=== PATIENT | male | born 1950 | race Caucasian/White ===

== ENCOUNTER → 2016-07-09 | Outpatient (CLI) | payer MEDICARE, MEDICAID ==
[~2016-07-09] MED LIST: 8 HOUR650 MG PO; AGGRENOX 25 MG-1 CER PO; AGGRENOX 25/2001 EA PO; AMARYL1 M1 PO; AMOX-CLAV PO; ARANESP0.1 MG/0.5 SC; ARANESP100 MCG/1 IV; ASPIRIN81 M1 PO; ATORVASTATIN CA20 M1 PO; BACTRIM DS 8001 TA1 PO; CALCIUM ACETAT667 M2 PO; CYCLOPHOSPHAMID50 M1 PO; CYTOXAN PO; DELTASONE20 M1 PO; DEXTROSE IV; DIALYVITE 800 W1 TA2 PO; DILTIAZEM 24HR360 MG PO; DILTIAZEM360 MG PO; DIOVAN160 MG PO; DOXAZOSIN MESYLA2 MG PO; ESIDREX,ORETIC,25 MG PO; FLEET GLYCERIN1 SU1 R; GLUCAGON HCL1 MG IJ; GLYCERIN1 EACH RC; HEPARIN SO5000 UNIT/ IV; IMODIUM A-D2 M2 PO; KLOR-CON 1010 ME1 PO; KLOR-CON M2020 ME1 PO; LASIX20 MG PO; LIPITOR20 MG PO; LISINOPRIL2.5 MG PO; LOPERAMIDE HCL2 MG PO; MAGNESIUM OXID400 MG PO; MANNITOL IV; MIDODRINE HCL5 M1 PO; MINIPRESS2 M1 PO; MISOPROSTOL100 MCG PO; MULTAQ400 MG PO; NEPHRO-VITE RX1 TAB PO; NITROSTAT0.3 M1 SL; NITROSTAT0.4 MG SL; NORCO 10-325 T1 EACH PO; NOVOLOG FLEX100 U/ML SC; NOVOLOG10 ML IV; Nicotrol 10MG I1 BOX INH; OXY IR PO; PERCOCET 325 MG1 TA2 PO; PRAZOSIN HCL2 MG PO; PREDNISONE10 M1 PO; PREDNISONE10 MG PO; PREDNISONE20 M1 PO; PRILOSEC20 M1 PO; PROAMATINE PO; PROTONIX40 MG PO; PULMICORT RESP0.5 M1 INH; QUESTRAN LIGHT4 GM PO; SMZ TMP DS PO; TOPROL XL50 M1 PO; TRIAMCINOLONE AC0.1% T; TRIAMTERENE & H1 CAP PO; VALSARTAN160 MG PO; VITAMIN D50000 UNIT PO; ZOFRAN4 MG PO; Zofran4 MG PO
[2016-07-09 10:20] LABS: HEMOGLOBIN 10.8 g/dl (14.0-18.0); MEAN CELL VOLUME 116.2 fl (80.0-94.0); MEAN CORPUSCULAR HGB CONC 32.7 g/dl (33.0-37.0); MEAN PLATELET VOLUME 11.1 fl (9.6-12.3); PLATELET COUNT AUTOMATED 197 10*3/uL (130-400); RED BLOOD COUNT 2.84 10*6/uL (4.50-5.90); RED CELL DISTRI WIDTH 15.1 % (0-14.5); WHITE BLOOD COUNT 16.7 10*3/uL (4.8-10.8)
[2016-07-09 10:46] LABS: ALBUMIN 2.9 gm/dl (3.1-4.5); BILIRUBIN, DIRECT 0.2 mg/dL (0.0-0.2); BILIRUBIN, TOTAL 0.4 mg/dl (0.2-1.0); POTASSIUM 4.8 mmol/L (3.5-5.1)
[2016-07-09 10:48] LABS: BILIRUBIN NEGATIVE (NEGATIVE); BLOOD 2+ (NEGATIVE); CLARITY CLOUDY (CLEAR); COLOR YELLOW (YELLOW); GLUCOSE NEGATIVE (NEGATIVE); KETONE NEGATIVE (NEGATIVE); LEUKO ESTERASE 3+ (NEGATIVE); NITRITE NEGATIVE (NEGATIVE); PH 7.5 (5.0-9.0); PROTEIN 2+ (NEGATIVE); SPECIFIC GRAVITY 1.015 (1.005-1.030); UROBILINOGEN 0.2 E.U./dl (0.2-1.0)
[2016-07-09 11:01] LABS: BACTERIA 1+; WBC TNTC wbc/hpf (0-5)
[2016-07-09 11:01] LABS: EOSINOPHIL # 0.3 10*3/uL (0-0.4); EOSINOPHILS 2 % (1-4); LYMPHOCYTE # 1.5 10*3/uL (1.3-4.4); MONOCYTE # 0.3 10*3/uL (0.1-1.0); NEUTROPHIL # 14.5 10*3/uL (2.3-7.9); NEUTROPHILS 87 % (47-73); PLATELET SUFFICIENCY NORMAL (NORMAL); TOTAL CELLS COUNTED 100 #CELLS
== END | disposition home or self-care (01) ==
LOC: CANPRESDC → SDC 08:45 → RAD 12:00 → LAB 12:00 → SDC 07-11 08:45 → EDSTATUS 07-11 08:45 → SDC 07-11 10:45
PROVIDERS: Surgery
DX: Z01.818 Encounter for other preprocedural examination (principal); Z93.2 Ileostomy status; N18.6 End stage renal disease

== ENCOUNTER → 2016-07-18 | Outpatient (CLI) | payer MEDICARE, MEDICAID ==
--- NOTE | ~2016-07-18 | PR ---
[place], [place] PROGRESS NOTE NAME: JACQUELINE GIFFORD [facility] #: [id number] UNIT #: [id number] ROOM: DOCTOR: CHUCKY GriffithJOSEMANUEL BIRTHDATE: [birth year] DOS: 07/18/2016 CHIEF COMPLAINT: Followup of pressure ulcer of the left elbow. HISTORY OF PRESENT ILLNESS: A 65-year-old male with multiple medical problems with the pressure ulcer of the left elbow, which is a full thickness stage 3. 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 He had been on a trial for a wound VAC which he has had for approximately 3 weeks now without any significant problems. He has no pain, no fevers, no chills, no change in drainage. There is no odor coming from the wound. He had a callus present on the right lateral foot, which is not causing him any pain at this time, and no specific complaints regarding that. He does have an area he was concerned of his fourth toe on the right foot, which was somewhat uncomfortable and had a dark discoloration to it. He has been using some sort of cream from his primary care physician, he is not sure what it is, but it seems to have been helping and has been improving the redness on that toe. Other than that, he has no specific complaints. His surgery for reversal of colostomy is on hold as he has been diagnosed with UTI. PHYSICAL EXAMINATION: VITAL SIGNS: He is afebrile, pulse is 64, respirations 18, blood pressure is 100/60. SKIN: The wound on the left elbow is really unchanged. The opening is 0.5 x 0.5 x 0.3 in depth, and there is still some undermining noted. Does not seem to be as deep all the way around as it had been, but it is still a maximum depth of 1.5, probably in the lower half of the wound, so the wound VAC does not seem to have really helped. There is no necrotic tissue, no purulence or cellulitis. The MRI was done of the elbow, which was negative. Debridement was not done today. ASSESSMENT AND PLAN: Pressure ulcer of the left elbow stage 3 that really seems to be stagnant at this point. The wound looks clean at this time. It does not appear infected. There is no visible necrotic tissue. I would just try to see if it will heal with collagen once again. I do think that the movement of flexing and extending his elbow is making it a little bit more difficult to heal this area as it is an area where the joint is. I did suggest a sling to see if we can help immobilize this, but then they are concerned that he would not be able to use his walker and walk around, so this is a difficult issue for him. I do think that if we will use a collagen dressing for now and pad it up with a lot of padding on it to protect the area, I would just loosely pack the wound and have him follow up in one week. [place], [place] PROGRESS NOTE [facility]: [facility] [id number] UNIT #: [id number] ROOM: DOCTOR: JOSEMANUEL LOCKE M.D. BIRTHDATE: [birth year] JOSEMANUEL LOCKE MD CM:PNTRANS [id number] JOSEMANUEL LOCKE M.D. 07/19/16 0048 interface
== END ==
LOC: WOUNDCARE 01:31
DX: E11.622 Type 2 diabetes mellitus with other skin ulcer (principal); L89.023 Pressure ulcer of left elbow, stage 3; M31.31 Wegener's granulomatosis with renal involvement; L84 Corns and callosities; E11.22 Type 2 diabetes mellitus with diabetic chronic kidney disease; N18.6 End stage renal disease; Z99.2 Dependence on renal dialysis

== ENCOUNTER 2016-07-23 09:30 | Inpatient (IN) | payer MEDICARE, MEDICAID ==
[~2016-07-23] VITALS: Ht 175.2 cm; Wt 80.5 kg
--- NOTE | ~2016-07-23 | O ---
[place], [place] OPERATIVE NOTE NAME: [facility]FFORD [facility] [id number] UNIT #: [id number] ROOM: [facility] DOCTOR: THONG WILLOUGHBY MD BIRTHDATE: [birth year] DOS: 07/31/2016 PREOPERATIVE DIAGNOSIS: Abdominal fascial dehiscence. POSTOPERATIVE DIAGNOSIS: Abdominal fascial dehiscence. PROCEDURE: Repair of abdominal fascial dehiscence. SURGEON: Thong Willoughby MD WELLNESS SPA MANAGER: MS3. ANESTHESIA: General with endotracheal intubation. INDICATIONS: This is a 66-year-old gentleman who recently underwent an exploratory laparotomy with takedown of ileostomies and partial small bowel resection, was found to have an abdominal fascial dehiscence upon rounds this morning. It was decided to take the patient to the OR for abdominal fascial dehiscence. The procedure and its complications were explained to the patient and his family in detail preoperatively. Complications that were discussed included, but were not limited to bleeding, hernia formation, infection and prolonged postoperative pain as well as recurrence. He agreed to proceed. DESCRIPTION OF PROCEDURE: After identifying the patient, the patient was brought to the operating suite and laid in the supine position. After induction of general anesthesia, the parts were painted and draped in the usual sterile fashion and a timeout procedure was called. The midline incision where the dehiscence was had some robert, which were removed and the skin edges were from each other. There was found to be a limited amount of fascial dehiscence in the inferior part of the incision where the stitch seemed to have broken through after the patient's coughing bout yesterday. This suture was completely removed and the fascial edges were inspected. They were freshened and saline was used for irrigation to clean the fascial edges out. Thereafter, 4 retention sutures were placed (#2 Ethilon) between the top and the body of the incision. Thereafter, the fascial defect itself was approximated with the help of #1 Prolene in a jygych-vw-foega interrupted fashion. Thereafter, the skin edges were approximated with the help of robert and the retention sutures were tied together over rubber bridge. A dressing was given. The patient was taken to the recovery room after uneventfully extubation. He tolerated the procedure well. There were no complications. Dr. Thong Willoughby, the attending surgeon, was present throughout the operating case. [place], [place] OPERATIVE NOTE NAME: JACQUELINE GIFFORD UNIT #: [id number] ROOM: [facility] DOCTOR: THONG WILLOUGHBY MD BIRTHDATE: [birth year] Thong Willoughby MD CM:OPRECORD:OPERATIVE NOTE [id number] THONG WILLOUGHBY MD 07/31/16 1220 interface
--- NOTE | ~2016-07-23 | O ---
[place], [place] OPERATIVE NOTE NAME: JACQUELINE GIFFORD [facility] #: [id number] UNIT #: [id number] ROOM: [facility] DOCTOR: THONG WILLOUGHBY MD BIRTHDATE: [birth year] DOS: 07/25/2016 PREOPERATIVE DIAGNOSIS: Ileostomies x2, status post exploratory laparotomy for ischemic bowel. POSTOPERATIVE DIAGNOSIS: Ileostomies x2, status post exploratory laparotomy for ischemic bowel. PROCEDURE: Exploratory laparotomy, lysis of adhesions, takedown of ileostomies x2, partial small bowel resection, repair of parastomal hernias x2, ileocolic anastomosis. SURGEON: Thong Willoughby MD CATTLE ALLEY WORKER: MS3. ANESTHESIA: General with endotracheal intubation. INDICATIONS: This is a 65-year-old gentleman who a few months ago underwent multiple exploratory laparotomies for ischemic bowel at an outside institution. The patient had a left lower quadrant ileostomy and a right lower quadrant mucous fistula which the patient wants reversed. The procedure and its complications explained to the patient in detail preoperatively. Complications that were discussed included but were not limited to bleeding, infection, hematoma/seroma/abscess formation, prolonged postoperative pain, damage to underlying vital structures, anastomotic leak, enterocutaneous fistula and prolonged postoperative pain. He agreed to proceed. DESCRIPTION OF PROCEDURE: After identifying the patient, the patient was brought to the operating suite and laid in the supine position. After induction of general anesthesia, the abdomen was prepped by removing the ileostomy bag and cleaning the area of the ileostomy. The abdomen was then shaved and prepped in the usual sterile fashion. Timeout procedure was called in the usual fashion as well. After the parts were painted and draped, the two ileostomies were closed with the help of 2-0 silk in a running fashion. The previously made midline incision scar was used to enter the abdomen again. The skin and the subcutaneous tissue were incised. The fascia was incised and the previous sutures from his abdominal laparotomy were removed. Careful entry to the abdomen was performed and multiple adhesions between the loops of the intestine and the anterior abdominal wall were taken down with the help of electrocautery and scissors. At this point, the left lower quadrant ileostomy was taken down by dissecting away from the bowel and the fascial defect, similar freeing of the mucus fistula on the right lower quadrant was performed. Thereafter, careful lysis of adhesions were performed in the right lower quadrant in order to separate the mucous fistula and to delineate the anatomy. There was approximately 40 cm of bowel, which was a blind loop, which was identified. It was decided to go ahead and resect this part of the intestine, and this was achieved with the help of the LigaSure device by ligating the mesentery involving the mucous fistula. This segment of the small intestine was sent for histopathological diagnosis. Thereafter, lysis of adhesions was done in the [place], [place] OPERATIVE NOTE NAME: JACQUELINE GIFFORD UNIT #: [id number] ROOM: [facility] DOCTOR: DALILA TREVIZO,THONG BIRTHDATE: [birth year] region of the ileostomy, so that adequate mobilization of the small intestine could be obtained. After adequate mobilization was completed, attention was turned towards the mid transverse colon, and this was identified by palpation of the colon as well as the staple line. This part of the colon was from the surrounding structures by lysing the adhesions in a blunt and sharp manner so that an adequate segment of the transverse colon could be used for the anastomosis. After that was performed, a stapled anastomosis (eodf-im-xlia, functional end-to-end) was performed with the help of a OWEN stapler. Thereafter, the opening was then closed with the help of a TIA stapler and the staple line was then reinforced with the help of 3-0 silk in an interrupted fashion. The mesenteric defect was then approximated with the help of a running 3-0 Vicryl suture. Thereafter, saline was used for irrigation and after that was performed, the two openings of the ileostomy on both lower quadrants were approximated with the help of continuous 0 PDS suture. Thereafter, the fascial defect in the midline was also approximated with the help of looped PDS in a running fashion. Saline was used for irrigation for all the 3 incisions, and they were then approximated with the help of robert. Dressing was given. The patient tolerated the procedure well and was taken to the recovery room in a stable fashion after uneventful extubation. Dr. Thong Willoughby, the attending surgeon, was present throughout the operating case. Blood loss was minimal. Thong Willoughby MD CM:OPRECORD:OPERATIVE NOTE [id number] THONG WILLOUGHBY MD 07/25/16 1132 interface
--- NOTE | ~2016-07-23 | PROC NOTE ---
[place], [place] PROCEDURE NOTE NAME[id number] UNIT #: [id number] ROOM: [facility] DOCTOR: QUITA BRISENO BIRTHDATE: [birth year] DOS: 07/29/2016 PROCEDURE: Modified barium swallow. BACKGROUND HISTORY AND MEDICAL HISTORY: The patient is a pleasant 66-year-old female with normal expressive receptive language. He was oriented to time and place, was able to follow commands, and he was a good historian for his recent medical history. He has a diagnosis of malnutrition, status post partial small bowel resection and he also is end-stage renal failure and reports he is on dialysis. The patient is currently on a clear liquid diet, and this was suspected due to recent bowel resection surgery. The patient denies any difficulty swallowing reported. He had a CVA 15 years ago, but denies any other neurological diagnosis at this time. The patient had a recent chest x-ray done on 07/27/2016, which showed small area in the right base, which is a change since last exam 07/19/2016. METHODS AND PROCEDURE: This study was done in conjunction with radiologist, Dr. Singh. The patient was in a wheelchair and viewed in the lateral plane. The patient was able to independently give himself the barium, and he was only given thin liquid barium and nectar thick liquid barium due to the fact of his recent surgery and that he is still on a clear liquid diet for suspected GI reasons. The patient took the barium via cup and he took a single sip of thin liquid and then sequential few sips and then a single sip of nectar liquid. ORAL PHASE: The patient demonstrated mild reduced ability to form a cohesive bolus and transfer it to the pharyngeal phase. It was mildly slow and this was suspected due to weakness of the tongue and punching action of the tongue to push the bolus into the pharynx. The patient demonstrated nofp-iv-qiprtxyt tongue base residue in which he produced sequential swallows and did clear. PHARYNGEAL PHASE: The radiologist reported quick transient penetration and bgdae-ye-rzvw amount on the thin and nectar; however, it was cleared and no aspiration was ever noted. RECOMMENDATIONS AND IMPRESSION: The patient demonstrates some weakness. He reports overall weakness since his surgery with some mildly reduced bolus formation and the transfer was slightly slow leaving some tongue-based residue, mild to moderate; however, the patient independently cleared that tongue base residue with to no residue. He eventually had no residue in the pharynx. Radiologist reported quick transient penetration on nectar and thin; however, it cleared and patient never demonstrated any signs and symptoms of aspiration. No diet recommendations are recommended at this time. The patient has a functional oral and pharyngeal phase and diet is to be recommended per physician based on recent GI issues and small bowel resection. Thank you for this referral. [place], [place] PROCEDURE NOTE NAME: JACQUELINE GIFFORD UNIT #: [id number] ROOM: [facility] DOCTOR: QUITA BRISENO BIRTHDATE: [birth year] QUITA BRISENO CM:PROCNOTE:PROCEDURE NOTE [id number] QUITA BRISENO
--- NOTE | ~2016-07-23 | PR ---
[place], [place] PROGRESS NOTE NAME: JACQUELINE GIFFORD [facility] #: [id number] UNIT #: [id number] ROOM: 501 DOCTOR: CHUCKY GriffithJOSEMANUEL BIRTHDATE: [birth year] DOS: 08/01/2016 WOUND CARE FOLLOWUP NOTE SUBJECTIVE: The patient is going to be discharged to intermediate today. I did come up to see him for a followup regarding his pressure ulcer of his left elbow. He is not complaining of any discomfort. There is minimal drainage and he has no other specific complaints regarding the wound. We had changed him to TheraHoney and foam to see if this would help in wound healing. OBJECTIVE: VITAL SIGNS: Stable. Temp is 98.1, pulse is 103, respirations 20, blood pressure is 151/93. WOUND EXAMINATION: The wound dressing was removed carefully. He did have elbow protector on top of the foam which was I thought a nice addition for pressure relief and the wound margins are essentially the same. The wound appears stable. There is no active cellulitis, purulence or tenderness. The wound margins are about the same at 0.5 x 0.5 x 0.3. The base of the wound looks clean. The undermining is still present, but I am only able to get the Q-tip down to approximately 1-1.2 cm were before it was quite a bit more of undermining at 1.5 cm, so it does seem like there is slightly less undermining than before. The undermining; however, is present all the way around as well. ASSESSMENT AND PLAN: Pressure ulcer, stage3, chronic, nonhealing. There are no signs of active infection. The wound healing has been quite slow. I would continue to use TheraHoney for now. It does seem to be perhaps helping a little bit with the undermining and I would like to have this be used for a little longer to see if how much further we progressed with wound healing. He has multiple factors that are contributing to poor wound healing including autoimmune disease, chronic renal failure on hemodialysis, diabetes, immunosuppressive agents and hypoalbuminemia. So, we will continue the Honey and foam and elbow protectors. The patient is going to be going to [facility]. Discharge orders for wound care have been written and I would like to see the patient in followup in the Wound Clinic if possible within a week that depends on transportation issues. [place], [place] PROGRESS NOTE NAME: JACQUELINE GIFFORD UNIT #: [id number] ROOM: [facility] DOCTOR: JOSEMANUEL LOCKE M.D. BIRTHDATE: [birth year] JOSEMANUEL LOCKE MD CM:JANI [id number] JOSEMANUEL LOCKE M.D. 08/01/16 2357 interface
--- NOTE | ~2016-07-23 | CON ---
[place], [place] REPORT OF CONSULTATION NAME: JACQUELINE GIFFORD [facility] #: [id number] UNIT #: [id number] ROOM: [facility] DOCTOR: CHUCKY GriffithJOSEMANUEL BIRTHDATE: [birth year] DOS: 07/25/2016 WOUND CARE CONSULTATION. HISTORY OF PRESENT ILLNESS: This is a 65-year-old male with a history of Jose's granulomatosis, chronic renal failure on hemodialysis, who underwent an elective colostomy reversal today. He just returned back to his room approximately an hour ago. Wound Care has been consulted does have been following him for a chronic wound of his left elbow. He has had this wound for many months now. He had come to see us in the wound clinic in April with the pressure ulcer of his left elbow that has not healed since we have been following him. We have tried several different dressings including silver dressings, collagen dressings Hydrofera Blue dressing, wound VAC without any significant change in measurements. He does have a fair amount of undermining and this has not really budged. He has had repeated episodes of purulence coming from the wound at times, but x-rays have been negative as well as MRI. It does not cause him any pain or discomfort. PAST MEDICAL HISTORY: Complicated by Mandie's granulomatosis, chronic renal failure, diabetes, CVA, hyperlipidemia, hypertension, normocytic anemia, polymyalgia rheumatica, history of resection of the small bowel secondary to GI bleed, ERCP, history of exploratory laparotomy, history of cholecystectomy. ALLERGIES: No known drug allergies. SOCIAL HISTORY: He lives with his . He goes to hemodialysis. He denies alcohol or drug abuse, does smoke 1 pack per day for 50 years. FAMILY HISTORY: Significant for cancer in his father, cardiac disease in his mother, 2 brothers with a history of cancer. CURRENT MEDICATIONS: The current medications that have been ordered and are as follows: Heparin subQ 5000 units, Zofran 4 mg p.r.n., morphine 2 mg q.4 hours p.r.n., Dilaudid 1 mg q.3 hours p.r.n., Dulcolax daily, Tylenol p.r.n. He is on several different other oral medications that are currently on hold and they include prednisone, Septra, Amaryl, Protonix, midodrine, Imodium, Lipitor, cholestyramine. Those are all seems to be on hold . REVIEW OF SYSTEMS: He really offers no specific complaints. He just got out of surgery. He does complain of some abdominal discomfort, but otherwise offers me no specific complaints at this time. PHYSICAL EXAMINATION: VITAL SIGNS: His temp is 97.4, pulse is 86, respirations 18, blood pressure is 125/72. GENERAL: The patient is somewhat drowsy at this time, but awakens easily. WOUND EXAMINATION: His wound was examined. It is a stage 3 pressure ulcer of the left elbow that has full thickness. There is no surrounding purulence or tenderness or active cellulitis. There is some drainage noted on the dressing today. The wound measurements are approximately 0.5 x 0.5 x 0.3 in depth and [place], [place] REPORT OF CONSULTATION NAME: JACQULEINE GIFFORD UNIT #: [id number] ROOM: [facility] DOCTOR: JOSEMANUEL LOCKE M.D. BIRTHDATE: [birth year] there is a fairly large amount of undermining pretty much throughout the entire area of approximately 1.5 cm. The rest of his exam, he is in no acute distress. LUNGS: Clear to auscultation anteriorly. CARDIOVASCULAR: S1, S2 regular rate and rhythm. ABDOMEN: Deferred. EXTREMITIES: There is no edema and no calf tenderness. LABORATORY DATA: His labs show white count of 15, hemoglobin of 11 and platelets of 242. BUN is 33, creatinine is 5.38, potassium is 5. Glucose was 53 this morning. Hemoglobin A1c is 7.4. Magnesium was low at 1.4. LFTs show an alkaline phosphatase of 123, ALT of 87, total protein is 6.1, albumin is 2.8. Triglycerides are elevated at 265. ASSESSMENT AND PLAN: Chronic pressure ulcer of the left elbow that has been very difficult to heal. We have tried many different dressings including collagen antimicrobials, wound VACs as well as debridements without any significant change in measurements. One of the dressings that we have not used is TheraHoney, so since he is here, I would like to try this and I would continue to pad and protect it with a foam dressing, elbow protectors have been ordered. Once the patient is medically stable from a surgical standpoint, I would like to consider an Ortho consult to see if they have any suggestions on further management of trying to close this wound. Orders have been written. The patient will be followed in the Wound Clinic upon discharge when medically stable. JOSEMANUEL LOCKE MD CM:CONSTR:REPORT OF CONSULTATION 1553 07/26/16 0523 interface
--- NOTE | ~2016-07-23 | CON ---
[place], [place] REPORT OF CONSULTATION NAME: JACQUELINE GIFFORD UNIT #: [id number] ROOM: [facility] DOCTOR: JOSEMANUEL LOCKE M.D. BIRTHDATE: [birth year] DOS: WOUND CARE CONSULTATION HISTORY OF PRESENT ILLNESS: This is a 65-year-old male with a history of Mandie's granulomatosis, chronic kidney disease who underwent an elective colostomy reversal today. Wound care has been consulted for a chronic wound of his left elbow. JOSEMANUEL LOCKE MD CM:CONSTR:REPORT OF CONSULTATION 1538 08/15/16 0637 RUTHIE SAENZ.R
[~2016-07-23 09:30] MED LIST changes: -8 HOUR650 MG PO; -DELTASONE20 M1 PO; -DEXTROSE IV; -DIALYVITE 800 W1 TA2 PO; -HEPARIN SO5000 UNIT/ IV; -IMODIUM A-D2 M2 PO; -LISINOPRIL2.5 MG PO; -MANNITOL IV; -MULTAQ400 MG PO; -NORCO 10-325 T1 EACH PO; -PRILOSEC20 M1 PO; -TOPROL XL50 M1 PO
[2016-07-24 13:15] VITALS: BP 104/65
[2016-07-24 13:42] VITALS: BP 104/65
[2016-07-24] MEDS ORDERED: DIALYVITE 800 W1 TA2 PO (14:10)
[2016-07-24] MEDS ORDERED: IMODIUM A-D2 M2 PO (14:10)
[2016-07-24 16:00] VITALS: BP 127/83
[2016-07-24 20:00] VITALS: BP 122/75
[2016-07-24 20:36] LABS: HEMATOCRIT 32.2 % (42.0-52.0); HEMOGLOBIN 10.5 g/dl (14.0-18.0); MEAN CELL VOLUME 112.6 fl (80.0-94.0); MEAN CORPUSCULAR HGB 36.7 pg (27.0-31.0); MEAN CORPUSCULAR HGB CONC 32.6 g/dl (33.0-37.0); MEAN PLATELET VOLUME 11.4 fl (9.6-12.3); NUCLEATED RED BLOOD CELL 0.3 % (0.0-0.0); PLATELET COUNT AUTOMATED 227 10*3/uL (130-400); RED BLOOD COUNT 2.86 10*6/uL (4.50-5.90); RED CELL DISTRI WIDTH 14.6 % (0-14.5); WHITE BLOOD COUNT 13.9 10*3/uL (4.8-10.8)
[2016-07-24 20:52] LABS: ALBUMIN 2.6 gm/dl (3.1-4.5); BILIRUBIN, TOTAL 0.3 mg/dl (0.2-1.0); POTASSIUM 5.3 mmol/L (3.5-5.1); TOTAL PROTEIN 5.5 gm/dL (6.4-8.2)
[2016-07-24 20:55] LABS: LYMPHOCYTE # 0.1 10*3/uL (1.3-4.4); METAMYELOCYTES 3 % (0-0); MONOCYTE # 0.4 10*3/uL (0.1-1.0); NEUTROPHIL # 12.9 10*3/uL (2.3-7.9); NEUTROPHILS 93 % (47-73); STOMATOCYTE FEW; TOTAL CELLS COUNTED 100 #CELLS
[2016-07-24 20:56] LABS: BURR CELLS FEW; PLATELET SUFFICIENCY NORMAL (NORMAL)
[2016-07-25] VITALS (12 sets, daily range): BP systolic 109–156; BP diastolic 67–94
[2016-07-25 07:10] LABS: MEAN CELL VOLUME 114.1 fl (80.0-94.0); MEAN CORPUSCULAR HGB 36.9 pg (27.0-31.0); MEAN CORPUSCULAR HGB CONC 32.4 g/dl (33.0-37.0); MEAN PLATELET VOLUME 11.2 fl (9.6-12.3); NUCLEATED RED BLOOD CELL 0.2 % (0.0-0.0); PLATELET COUNT AUTOMATED 242 10*3/uL (130-400); RED BLOOD COUNT 2.98 10*6/uL (4.50-5.90); RED CELL DISTRI WIDTH 14.6 % (0-14.5)
[2016-07-25 07:29] LABS: PROTHROMBIN TIME 10.9 SECONDS (9.0-12.4)
[2016-07-25 07:32] LABS: ALBUMIN 2.8 gm/dl (3.1-4.5); BILIRUBIN, TOTAL 0.3 mg/dl (0.2-1.0); FREE T4 1.2 ng/dl (0.76-1.46); MAGNESIUM 1.4 mg/dL (1.5-2.1); PHOSPHOROUS 4.9 mg/dL (2.5-4.9); THYROID STIM HORMONE (HS) 1.22 uIU/ml (0.358-4.75); TOTAL PROTEIN 6.1 gm/dL (6.4-8.2)
[2016-07-25 07:48] LABS: ATYPICAL LYMPHS 2 % (0-0); LYMPHOCYTE # 1.1 10*3/uL (1.3-4.4); METAMYELOCYTES 2 % (0-0); MONOCYTE # 0.9 10*3/uL (0.1-1.0); NEUTROPHIL # 12.8 10*3/uL (2.3-7.9); NEUTROPHILS 85 % (47-73); TOTAL CELLS COUNTED 100 #CELLS
[2016-07-25 07:49] LABS: FOLIC ACID > 24.00 ng/mL (>5.38); PLATELET SUFFICIENCY NORMAL (NORMAL); POLYCHROMASIA SLIGHT
[2016-07-25 07:54] LABS: HEMOGLOBIN A1c 7.4 % (4.8-5.6)
[2016-07-26] VITALS: BP 118/54
[2016-07-26 08:00] VITALS: BP 118/74
[2016-07-26 08:16] LABS: HEMATOCRIT 33.1 % (42.0-52.0); HEMOGLOBIN 10.7 g/dl (14.0-18.0); MEAN CELL VOLUME 113.4 fl (80.0-94.0); MEAN CORPUSCULAR HGB 36.6 pg (27.0-31.0); MEAN CORPUSCULAR HGB CONC 32.3 g/dl (33.0-37.0); MEAN PLATELET VOLUME 11.7 fl (9.6-12.3); NUCLEATED RED BLOOD CELL 0.2 % (0.0-0.0); PLATELET COUNT AUTOMATED 229 10*3/uL (130-400); RED BLOOD COUNT 2.92 10*6/uL (4.50-5.90); RED CELL DISTRI WIDTH 14.6 % (0-14.5); WHITE BLOOD COUNT 16.1 10*3/uL (4.8-10.8)
[2016-07-26 08:25] LABS: ALBUMIN 2.5 gm/dl (3.1-4.5); BILIRUBIN, TOTAL 0.4 mg/dl (0.2-1.0); POTASSIUM 5.6 mmol/L (3.5-5.1); TOTAL PROTEIN 5.8 gm/dL (6.4-8.2)
[2016-07-26 09:08] LABS: MONOCYTE # 0.2 10*3/uL (0.1-1.0); NEUTROPHILS 93 % (47-73); OVALOCYTES FEW; PLATELET SUFFICIENCY NORMAL (NORMAL); TOTAL CELLS COUNTED 100 #CELLS
[2016-07-26 16:00] VITALS: BP 120/84
[2016-07-26 20:00] VITALS: BP 126/73
[2016-07-27] VITALS: BP 118/70
[2016-07-27 06:05] LABS: HEMATOCRIT 29.3 % (42.0-52.0); HEMOGLOBIN 9.4 g/dl (14.0-18.0); MEAN CELL VOLUME 113.1 fl (80.0-94.0); MEAN CORPUSCULAR HGB 36.3 pg (27.0-31.0); MEAN CORPUSCULAR HGB CONC 32.1 g/dl (33.0-37.0); MEAN PLATELET VOLUME 11.4 fl (9.6-12.3); NUCLEATED RED BLOOD CELL 0.2 % (0.0-0.0); PLATELET COUNT AUTOMATED 183 10*3/uL (130-400); RED BLOOD COUNT 2.59 10*6/uL (4.50-5.90); RED CELL DISTRI WIDTH 14.6 % (0-14.5); WHITE BLOOD COUNT 14.9 10*3/uL (4.8-10.8)
[2016-07-27 06:34] LABS: POTASSIUM 4.3 mmol/L (3.5-5.1)
[2016-07-27 07:13] LABS: LYMPHOCYTE # 0.4 10*3/uL (1.3-4.4); METAMYELOCYTES 1 % (0-0); MONOCYTE # 0.9 10*3/uL (0.1-1.0); NEUTROPHIL # 13.4 10*3/uL (2.3-7.9); NEUTROPHILS 90 % (47-73); TOTAL CELLS COUNTED 100 #CELLS
[2016-07-27 07:14] LABS: PLATELET SUFFICIENCY NORMAL (NORMAL); POLYCHROMASIA SLIGHT
[2016-07-27 08:00] VITALS: BP 132/88
[2016-07-27 12:00] VITALS: BP 133/82
[2016-07-27 16:00] VITALS: BP 134/85
[2016-07-27 18:10] LABS: BILIRUBIN NEGATIVE (NEGATIVE); BLOOD 2+ (NEGATIVE); CLARITY CLEAR (CLEAR); COLOR YELLOW (YELLOW); GLUCOSE NEGATIVE (NEGATIVE); KETONE TRACE (NEGATIVE); LEUKO ESTERASE 1+ (NEGATIVE); NITRITE NEGATIVE (NEGATIVE); PROTEIN 2+ (NEGATIVE); SPECIFIC GRAVITY 1.015 (1.005-1.030); UROBILINOGEN 0.2 E.U./dl (0.2-1.0)
[2016-07-27 18:30] LABS: RBC 21-30 rbc/hpf (0-2); WBC 21-30 wbc/hpf (0-5)
[2016-07-27 20:00] VITALS: BP 137/90
[2016-07-28] VITALS: BP 134/84
[2016-07-28 07:27] LABS: HEMATOCRIT 27.5 % (42.0-52.0); HEMOGLOBIN 8.9 g/dl (14.0-18.0); MEAN CELL VOLUME 113.2 fl (80.0-94.0); MEAN CORPUSCULAR HGB 36.6 pg (27.0-31.0); MEAN CORPUSCULAR HGB CONC 32.4 g/dl (33.0-37.0); NUCLEATED RED BLOOD CELL 0.2 % (0.0-0.0); PLATELET COUNT AUTOMATED 179 10*3/uL (130-400); RED BLOOD COUNT 2.43 10*6/uL (4.50-5.90); RED CELL DISTRI WIDTH 14.5 % (0-14.5); WHITE BLOOD COUNT 11.5 10*3/uL (4.8-10.8)
[2016-07-28 07:41] LABS: BILIRUBIN, TOTAL 0.3 mg/dl (0.2-1.0); POTASSIUM 4.4 mmol/L (3.5-5.1); TOTAL PROTEIN 4.7 gm/dL (6.4-8.2)
[2016-07-28 07:44] LABS: LYMPHOCYTE # 0.1 10*3/uL (1.3-4.4); MONOCYTE # 0.9 10*3/uL (0.1-1.0); NEUTROPHIL # 10.5 10*3/uL (2.3-7.9); NEUTROPHILS 91 % (47-73); TOTAL CELLS COUNTED 100 #CELLS
[2016-07-28 07:45] LABS: PLATELET SUFFICIENCY NORMAL (NORMAL); POLYCHROMASIA SLIGHT; TOXIC GRANULATION SLIGHT
[2016-07-28 08:00] VITALS: BP 142/82
[2016-07-28 12:00] VITALS: BP 149/85
[2016-07-28 16:00] VITALS: BP 155/98
[2016-07-28 20:00] VITALS: BP 142/95
[2016-07-29] VITALS: BP 142/91
[2016-07-29 06:34] LABS: HEMATOCRIT 27.3 % (42.0-52.0); HEMOGLOBIN 8.8 g/dl (14.0-18.0); MEAN CELL VOLUME 111.9 fl (80.0-94.0); MEAN CORPUSCULAR HGB 36.1 pg (27.0-31.0); MEAN CORPUSCULAR HGB CONC 32.2 g/dl (33.0-37.0); MEAN PLATELET VOLUME 11.4 fl (9.6-12.3); NUCLEATED RED BLOOD CELL 0.2 % (0.0-0.0); PLATELET COUNT AUTOMATED 203 10*3/uL (130-400); RED BLOOD COUNT 2.44 10*6/uL (4.50-5.90); RED CELL DISTRI WIDTH 14.2 % (0-14.5); WHITE BLOOD COUNT 10.7 10*3/uL (4.8-10.8)
[2016-07-29 07:07] LABS: BILIRUBIN, TOTAL 0.3 mg/dl (0.2-1.0); MAGNESIUM 1.7 mg/dL (1.5-2.1); PHOSPHOROUS 5.5 mg/dL (2.5-4.9); POTASSIUM 3.9 mmol/L (3.5-5.1); TOTAL PROTEIN 4.8 gm/dL (6.4-8.2)
[2016-07-29 07:26] LABS: LYMPHOCYTE # 0.5 10*3/uL (1.3-4.4); METAMYELOCYTES 1 % (0-0); MONOCYTE # 0.4 10*3/uL (0.1-1.0); MYELOCYTES 1 % (0-0); NEUTROPHIL # 9.5 10*3/uL (2.3-7.9); NEUTROPHILS 89 % (47-73); OVALOCYTES FEW; PLATELET SUFFICIENCY NORMAL (NORMAL); TOTAL CELLS COUNTED 100 #CELLS
[2016-07-29 08:00] VITALS: BP 127/70; BP 130/90
[2016-07-29 16:40] VITALS: BP 133/87
[2016-07-29 20:00] VITALS: BP 114/67
[2016-07-30] VITALS: BP 106/87; BP 167/71
[2016-07-30 06:39] LABS: ALBUMIN 1.8 gm/dl (3.1-4.5); PHOSPHOROUS 3.5 mg/dL (2.5-4.9); POTASSIUM 3.8 mmol/L (3.5-5.1)
[2016-07-30 08:00] VITALS: BP 100/50
[2016-07-30 12:00] VITALS: BP 120/68
[2016-07-30 16:00] VITALS: BP 135/86
[2016-07-30 20:00] VITALS: BP 112/75
[2016-07-31] VITALS (10 sets, daily range): BP systolic 106–156; BP diastolic 65–85
[2016-07-31 12:13] LABS: HEMATOCRIT 27.4 % (42.0-52.0); HEMOGLOBIN 8.7 g/dl (14.0-18.0); MEAN CELL VOLUME 112.8 fl (80.0-94.0); MEAN CORPUSCULAR HGB 35.8 pg (27.0-31.0); MEAN CORPUSCULAR HGB CONC 31.8 g/dl (33.0-37.0); MEAN PLATELET VOLUME 11.2 fl (9.6-12.3); PLATELET COUNT AUTOMATED 176 10*3/uL (130-400); RED BLOOD COUNT 2.43 10*6/uL (4.50-5.90); RED CELL DISTRI WIDTH 14.6 % (0-14.5); WHITE BLOOD COUNT 8.2 10*3/uL (4.8-10.8)
[2016-07-31 12:23] LABS: ALBUMIN 1.9 gm/dl (3.1-4.5); PHOSPHOROUS 3.9 mg/dL (2.5-4.9); POTASSIUM 3.1 mmol/L (3.5-5.1)
[2016-07-31 12:36] LABS: LYMPHOCYTE # 0.4 10*3/uL (1.3-4.4); MONOCYTE # 0.2 10*3/uL (0.1-1.0); NEUTROPHIL # 7.5 10*3/uL (2.3-7.9); NEUTROPHILS 92 % (47-73); PLATELET SUFFICIENCY NORMAL (NORMAL); POLYCHROMASIA SLIGHT; TOTAL CELLS COUNTED 100 #CELLS
[2016-08-01] VITALS: BP 117/78
[2016-08-01 06:17] LABS: ALBUMIN 1.8 gm/dl (3.1-4.5); BILIRUBIN, TOTAL 0.3 mg/dl (0.2-1.0); POTASSIUM 3.4 mmol/L (3.5-5.1); TOTAL PROTEIN 4.6 gm/dL (6.4-8.2)
[2016-08-01 08:00] VITALS: BP 127/70
[2016-08-01 12:00] VITALS: BP 151/93
[2016-08-01] MEDS ORDERED: NORCO 10-325 T1 EACH PO (13:14)
[2016-08-01] MEDS ORDERED: DEXTROSE IV (13:58)
[2016-08-04] MEDS ORDERED: 8 HOUR650 MG PO (02:34)
[2016-08-04] MEDS ORDERED: DELTASONE20 M1 PO (02:39)
[2016-08-04] MEDS ORDERED: PRILOSEC20 M1 PO (02:40)
[2016-08-21] MEDS ORDERED: MAGNESIUM OXID400 MG PO (12:03)
[2016-08-27] MEDS ORDERED: MULTAQ400 MG PO (09:24)
[2016-08-27] MEDS ORDERED: MANNITOL IV (09:24)
[2016-08-27] MEDS ORDERED: TOPROL XL50 M1 PO (09:24)
[2016-08-27] MEDS ORDERED: HEPARIN SO5000 UNIT/ IV (09:24)
[2016-08-27] MEDS ORDERED: LISINOPRIL2.5 MG PO (09:24)
== END 2016-08-01 15:04 | disposition other institution (70) | DRG 329 ==
LOC: SDC 09:30 → 5E 07-24 11:11 → SDC 07-25 08:30 → 5E 07-25 09:30 → EDSTATUS 07-25 09:30 → 5E 08-01 15:04
PROVIDERS: Family Medicine; Internal Medicine; Internal Medicine Nephrology; Surgery
DX: Z43.3 Encounter for attention to colostomy (principal); N18.6 End stage renal disease; E43 Unspecified severe protein-calorie malnutrition; M31.31 Wegener's granulomatosis with renal involvement; J18.9 Pneumonia, unspecified organism; E11.22 Type 2 diabetes mellitus with diabetic chronic kidney disease; L89.023 Pressure ulcer of left elbow, stage 3; D62 Acute posthemorrhagic anemia; K92.2 Gastrointestinal hemorrhage, unspecified; T81.32XA Disruption of internal operation (surgical) wound, not elsewhere classified, initial encounter; E88.09 Other disorders of plasma-protein metabolism, not elsewhere classified; I12.9 Hypertensive chronic kidney disease with stage 1 through stage 4 chronic kidney disease, or unspecified chronic kidney disease; E78.5 Hyperlipidemia, unspecified; D63.1 Anemia in chronic kidney disease; I77.6 Arteritis, unspecified; M35.3 Polymyalgia rheumatica; F17.210 Nicotine dependence, cigarettes, uncomplicated; Z71.6 Tobacco abuse counseling; Z68.25 Body mass index [BMI] 25.0-25.9, adult; Z99.2 Dependence on renal dialysis; Z86.73 Personal history of transient ischemic attack (TIA), and cerebral infarction without residual deficits; Z90.49 Acquired absence of other specified parts of digestive tract; Z80.8 Family history of malignant neoplasm of other organs or systems; Z82.49 Family history of ischemic heart disease and other diseases of the circulatory system

== ENCOUNTER → 2016-10-03 | Outpatient (CLI) | payer MEDICARE, MEDICAID ==
[~2016-10-03] MED LIST changes: +8 HOUR650 MG PO; +DELTASONE20 M1 PO; +DEXTROSE IV; +DIALYVITE 800 W1 TA2 PO; +HEPARIN SO5000 UNIT/ IV; +IMODIUM A-D2 M2 PO; +LISINOPRIL2.5 MG PO; +MANNITOL IV; +MULTAQ400 MG PO; +NORCO 10-325 T1 EACH PO; +PRILOSEC20 M1 PO; +TOPROL XL50 M1 PO
== END | disposition home or self-care (01) ==
LOC: CT 12:12
DX: J90 Pleural effusion, not elsewhere classified (principal); J43.9 Emphysema, unspecified; M31.31 Wegener's granulomatosis with renal involvement; Z87.01 Personal history of pneumonia (recurrent); Z87.891 Personal history of nicotine dependence

== ENCOUNTER → 2016-10-08 | Outpatient (CLI) | payer MEDICARE, MEDICAID ==
[2016-10-08 09:30] LABS: BASO % 0.1 % (0.0-1.0); EOS # 0.2 10*3/uL (0.0-0.4); EOS % 1.1 % (1.0-4.0); IG # 0.2 10*3/uL (0.0-0.1); LYMPH # 1.4 10*3/uL (1.3-4.4); LYMPH % 8.8 % (27.0-41.0); MEAN CELL VOLUME 100.9 fl (80.0-94.0); MEAN CORPUSCULAR HGB 31.5 pg (27.0-31.0); MEAN CORPUSCULAR HGB CONC 31.3 g/dl (33.0-37.0); MEAN PLATELET VOLUME 11.4 fl (9.6-12.3); MONO # 1.3 10*3/uL (0.1-1.0); MONO % 7.7 % (3.0-9.0); NEUT # 13.1 10*3/uL (2.3-7.9); NEUT % 81.1 % (47.0-73.0); PLATELET COUNT AUTOMATED 247 10*3/uL (130-400); RED BLOOD COUNT 3.17 10*6/uL (4.50-5.90); RED CELL DISTRI WIDTH 16.7 % (0-14.5); WHITE BLOOD COUNT 16.2 10*3/uL (4.8-10.8)
[2016-10-08 09:53] LABS: SGOT/AST 16 IU/L (3-35); SGPT/ALT 17 U/L (12-78)
== END | disposition home or self-care (01) ==
LOC: LAB 09:08
PROVIDERS: Internal Medicine
DX: M31.31 Wegener's granulomatosis with renal involvement (principal)

== ENCOUNTER → 2016-10-15 | Outpatient (CLI) | payer MEDICARE, MEDICAID ==
[2016-10-15 10:15] LABS: BASO % 0.2 % (0.0-1.0); EOS # 0.2 10*3/uL (0.0-0.4); EOS % 1.3 % (1.0-4.0); HEMATOCRIT 34.3 % (42.0-52.0); HEMOGLOBIN 10.6 g/dl (14.0-18.0); IG # 0.2 10*3/uL (0.0-0.1); LYMPH # 1.3 10*3/uL (1.3-4.4); LYMPH % 7.3 % (27.0-41.0); MEAN CELL VOLUME 102.4 fl (80.0-94.0); MEAN CORPUSCULAR HGB 31.6 pg (27.0-31.0); MEAN CORPUSCULAR HGB CONC 30.9 g/dl (33.0-37.0); MEAN PLATELET VOLUME 11.8 fl (9.6-12.3); MONO # 1.2 10*3/uL (0.1-1.0); MONO % 6.4 % (3.0-9.0); NEUT # 15.4 10*3/uL (2.3-7.9); NEUT % 83.8 % (47.0-73.0); NUCLEATED RED BLOOD CELL 0.1 10*3/uL (0.0-0.0); NUCLEATED RED BLOOD CELL 0.3 % (0.0-0.0); PLATELET COUNT AUTOMATED 283 10*3/uL (130-400); RED BLOOD COUNT 3.35 10*6/uL (4.50-5.90); RED CELL DISTRI WIDTH 17.4 % (0-14.5); WHITE BLOOD COUNT 18.3 10*3/uL (4.8-10.8)
[2016-10-15 10:18] LABS: BILIRUBIN NEGATIVE (NEGATIVE); BLOOD 2+ (NEGATIVE); CLARITY CLOUDY (CLEAR); COLOR YELLOW (YELLOW); GLUCOSE NEGATIVE (NEGATIVE); KETONE NEGATIVE (NEGATIVE); NITRITE NEGATIVE (NEGATIVE); PROTEIN 2+ (NEGATIVE); SPECIFIC GRAVITY 1.015 (1.005-1.030); UROBILINOGEN 0.2 E.U./dl (0.2-1.0)
[2016-10-15 10:24] LABS: LEUKO ESTERASE 3+ (NEGATIVE)
[2016-10-15 10:28] LABS: URINE TP/CRE RATIO 2.6 (<0.21)
[2016-10-15 10:30] LABS: BACTERIA TRACE; WBC TNTC wbc/hpf (0-5)
[2016-10-15 11:19] LABS: SGOT/AST 24 IU/L (3-35); SGPT/ALT 21 U/L (12-78)
== END | disposition home or self-care (01) ==
LOC: LAB 09:50
PROVIDERS: Internal Medicine
DX: M31.31 Wegener's granulomatosis with renal involvement (principal)

== ENCOUNTER → 2016-10-22 | Outpatient (CLI) | payer MEDICARE, MEDICAID ==
[2016-10-22 09:52] LABS: BASO % 0.2 % (0.0-1.0); EOS # 0.2 10*3/uL (0.0-0.4); EOS % 1.7 % (1.0-4.0); HEMOGLOBIN 10.8 g/dl (14.0-18.0); IG # 0.1 10*3/uL (0.0-0.1); LYMPH # 1.5 10*3/uL (1.3-4.4); LYMPH % 10.8 % (27.0-41.0); MEAN CELL VOLUME 101.4 fl (80.0-94.0); MEAN CORPUSCULAR HGB 31.3 pg (27.0-31.0); MEAN CORPUSCULAR HGB CONC 30.9 g/dl (33.0-37.0); MEAN PLATELET VOLUME 11.5 fl (9.6-12.3); MONO # 1.1 10*3/uL (0.1-1.0); MONO % 7.9 % (3.0-9.0); NEUT # 10.9 10*3/uL (2.3-7.9); NEUT % 78.7 % (47.0-73.0); NUCLEATED RED BLOOD CELL 0.2 % (0.0-0.0); PLATELET COUNT AUTOMATED 279 10*3/uL (130-400); RED BLOOD COUNT 3.45 10*6/uL (4.50-5.90); RED CELL DISTRI WIDTH 17.6 % (0-14.5); WHITE BLOOD COUNT 13.8 10*3/uL (4.8-10.8)
[2016-10-22 10:14] LABS: SGOT/AST 28 IU/L (3-35); SGPT/ALT 29 U/L (12-78)
== END | disposition home or self-care (01) ==
LOC: LAB 09:21
PROVIDERS: Internal Medicine
DX: M31.31 Wegener's granulomatosis with renal involvement (principal)

== ENCOUNTER → 2016-12-12 | Outpatient (CLI) | payer MEDICARE, MEDICAID | END | disposition home or self-care (01) | LOC: LAB 09:32 | DX: E55.9 Vitamin D deficiency, unspecified (principal) ==

== ENCOUNTER → 2016-12-26 | Outpatient (CLI) | payer MEDICARE, MEDICAID ==
[2016-12-26 10:55] LABS: BASO % 0.2 % (0.0-1.0); EOS # 0.1 10*3/uL (0.0-0.4); EOS % 0.5 % (1.0-4.0); HEMATOCRIT 39.7 % (42.0-52.0); HEMOGLOBIN 12.5 g/dl (14.0-18.0); IG # 0.4 10*3/uL (0.0-0.1); LYMPH % 5.6 % (27.0-41.0); MEAN CELL VOLUME 100.8 fl (80.0-94.0); MEAN CORPUSCULAR HGB 31.7 pg (27.0-31.0); MEAN CORPUSCULAR HGB CONC 31.5 g/dl (33.0-37.0); MEAN PLATELET VOLUME 11.2 fl (9.6-12.3); MONO # 1.3 10*3/uL (0.1-1.0); MONO % 7.5 % (3.0-9.0); NEUT # 14.8 10*3/uL (2.3-7.9); NEUT % 84.1 % (47.0-73.0); PLATELET COUNT AUTOMATED 254 10*3/uL (130-400); RED BLOOD COUNT 3.94 10*6/uL (4.50-5.90); RED CELL DISTRI WIDTH 17.4 % (0-14.5); WHITE BLOOD COUNT 17.6 10*3/uL (4.8-10.8)
[2016-12-26 10:57] LABS: BILIRUBIN NEGATIVE (NEGATIVE); BLOOD 3+ (NEGATIVE); CLARITY CLOUDY (CLEAR); COLOR YELLOW (YELLOW); GLUCOSE NEGATIVE (NEGATIVE); KETONE NEGATIVE (NEGATIVE); LEUKO ESTERASE 3+ (NEGATIVE); NITRITE NEGATIVE (NEGATIVE); PROTEIN 2+ (NEGATIVE); SPECIFIC GRAVITY 1.015 (1.005-1.030); UROBILINOGEN 0.2 E.U./dl (0.2-1.0)
[2016-12-26 11:04] LABS: BACTERIA 2+; WBC TNTC wbc/hpf (0-5)
[2016-12-26 11:09] LABS: URINE TP/CRE RATIO 4.5 (<0.21)
[2016-12-26 11:20] LABS: C-REACTIVE PROTEIN 1.99 MG/DL (0-0.3)
== END | disposition home or self-care (01) ==
LOC: LAB 10:27
PROVIDERS: Internal Medicine
DX: M31.31 Wegener's granulomatosis with renal involvement (principal)

== ENCOUNTER 2017-01-26 10:41 | Emergency (ER) | payer MEDICARE, MEDICAID ==
[~2017-01-26] VITALS: Wt 77.1 kg
[2017-01-26] MEDS ORDERED: DIALYVITE PO (10:59)
[2017-01-26] MEDS ORDERED: MIDODRINE HCL5 M1 PO (11:00)
[2017-01-26] MEDS ORDERED: VITAMIN D2400 UNIT PO (11:00)
[2017-01-26] MEDS ORDERED: MISOPROSTOL100 MCG PO (11:00)
[2017-01-26] MEDS ORDERED: COUMADIN1 M1 PO (11:01)
[2017-01-26] MEDS ORDERED: LIPITOR20 MG PO (11:01)
[2017-01-26] MEDS ORDERED: OMEPRAZOLE D/R20 MG PO (11:01)
[2017-01-26] MEDS ORDERED: RAYOS2 M1 PO (11:01)
[2017-01-26] MEDS ORDERED: CALPHRON667 MG PO (11:02)
[2017-01-26] MEDS ORDERED: MAGNESIUM OXID400 MG PO (11:02)
[2017-01-26] MEDS ORDERED: IMODIUM A-D2 M2 PO (11:03)
[2017-01-26] MEDS ORDERED: NITROGLYCERIN0.4 MG SL (11:03)
[2017-01-26] MEDS ORDERED: SODIUM BICARBO650 MG PO (11:04)
[2017-01-26 11:14] LABS: BASO % 0.1 % (0.0-1.0); EOS % 0.1 % (1.0-4.0); HEMATOCRIT 37.8 % (42.0-52.0); HEMOGLOBIN 11.7 g/dl (14.0-18.0); IG # 0.2 10*3/uL (0.0-0.1); LYMPH # 0.9 10*3/uL (1.3-4.4); LYMPH % 5.6 % (27.0-41.0); MEAN CELL VOLUME 98.7 fl (80.0-94.0); MEAN CORPUSCULAR HGB 30.5 pg (27.0-31.0); MONO # 0.9 10*3/uL (0.1-1.0); MONO % 5.6 % (3.0-9.0); NEUT # 14.2 10*3/uL (2.3-7.9); NEUT % 87.4 % (47.0-73.0); NUCLEATED RED BLOOD CELL 0.2 % (0.0-0.0); PLATELET COUNT AUTOMATED 225 10*3/uL (130-400); RED BLOOD COUNT 3.83 10*6/uL (4.50-5.90); RED CELL DISTRI WIDTH 15.8 % (0-14.5); WHITE BLOOD COUNT 16.2 10*3/uL (4.8-10.8)
[2017-01-26 11:23] LABS: PROTHROMBIN TIME 45.8 SECONDS (9.0-12.4)
[2017-01-26 11:33] LABS: ALBUMIN 2.1 gm/dl (3.1-4.5); ALKALINE PHOSPHATASE 184 U/L (45-117); BILIRUBIN, TOTAL 0.6 mg/dl (0.2-1.0); BUN 45 mg/dl (7-24); CARBON DIOXIDE 28 mmol/L (21-32); CHLORIDE 104 mmol/L (98-107); EST GLOM FILT AFRICAN AMERICAN 7 ml/min; GLUCOSE 82 mg/dL (65-99); SGOT/AST 13 IU/L (3-35); SGPT/ALT 14 U/L (12-78); SODIUM 142 mmol/L (136-145); TOTAL PROTEIN 5.7 gm/dL (6.4-8.2)
[2017-01-26 11:38] LABS: TROPONIN I 0.122 ng/ml (<0.045)
[2017-01-26 11:55] LABS: NT-proBNP > 35000.00 pg/mL (0-125)
[2017-01-26 13:20] VITALS: BP 132/80
== END 2017-01-26 13:30 ==
LOC: ED 10:41
PROVIDERS: Emergency Medicine
DX: I48.91 Unspecified atrial fibrillation (principal); R79.1 Abnormal coagulation profile; R79.89 Other specified abnormal findings of blood chemistry; E11.22 Type 2 diabetes mellitus with diabetic chronic kidney disease; I12.0 Hypertensive chronic kidney disease with stage 5 chronic kidney disease or end stage renal disease; N18.6 End stage renal disease; M54.2 Cervicalgia; E78.5 Hyperlipidemia, unspecified; Z79.4 Long term (current) use of insulin; Z86.73 Personal history of transient ischemic attack (TIA), and cerebral infarction without residual deficits; Z79.899 Other long term (current) drug therapy; Z79.02 Long term (current) use of antithrombotics/antiplatelets; Z87.891 Personal history of nicotine dependence